=== PATIENT | female | born 1990 | race Caucasian/White ===

== ENCOUNTER 2017-10-23 10:26 | Inpatient (IN) | payer OTHER, BC, MEDICAID ==
[2017-10-23] VITALS (11 sets, daily range): BP systolic 100–131; BP diastolic 60–76; PULSE 66–97; RESP 12–20; TEMP 97.4–98.4; O2SAT 95–100
[~2017-10-23] VITALS: Ht 154.9 cm; Wt 73.0 kg
[~2017-10-23 10:26] MED LIST: MACR100C PO
--- NOTE | 2017-10-23 11:00 | HHI.HP ---
HPI Chief Complaint Repeat Date Seen: Oct 23, 2017 Travel History International Travel<30 Days: No Contact w/Intl Traveler<30Days: No History of Present Illness HPI Patient is a 27 year old at 39-0/7 weeks gestation who presents today for repeat . She denies any vaginal bleeding. She has been having a yellowish discharge for the past week that is not associated with vaginal itching or pain. She is feel irregular contractions but denies any gush or leaking of fluid. Positive movement. History Past Medical History Medical History: Denies Significant Hx Obstetric History Obstetric History x 2 2008, 2010 Past Surgical History Narrative Surgical Umbilical Hernia repair 2011 x 2 Family History Family History: Negative Social History Alcohol Use: No Tobacco Use: No Substance Abuse: No Allergies-Medications (Allergen,Severity, Reaction): Coded Allergies: No Known Allergies (Unverified , 01/07/15) Home Meds Active Scripts Nitrofurantoin Monohyd Macro (Macrobid) 100 Mg Cap, 100 MG PO BID for 7 Days, CAP Prov:Vic Arenas DO 01/08/15 Review of Systems Except as stated in HPI: all other systems reviewed are Neg General / Constitutional: No: Fever, Chills Eyes: No: Visual changes HENT: No: Headaches Cardiovascular: No: Chest Pain or Discomfort, Palpitations Respiratory: No: Cough, Short of Breath Gastrointestinal: No: Nausea, Vomiting, Abdominal Pain Genitourinary: No: Dysuria, Pelvic Pain, Discharge, Vaginal Bleeding Musculoskeletal: No: Edema Skin: No Lesions Neurologic: No: Headache Psychiatric: No: Substance Abuse Physical Exam Narrative GENERAL: Well-nourished, well-developed patient. SKIN: Warm and dry. HEAD: Normocephalic and atraumatic. EYES: No scleral icterus. No injection or drainage. ENT: No nasal drainage noted. Mucous membranes pink. Airway patent. NECK: Supple, trachea midline. No JVD. CARDIOVASCULAR: Regular rate and rhythm without murmurs, gallops, or rubs. RESPIRATORY: Breath sounds equal bilaterally. No accessory muscle use. ABDOMEN/GI: Abdomen soft, non-tender, bowel sounds present, no rebound, no guarding Gravid to 39 weeks size GENITOURINARY: External Genitalia: intact and normal in appearance Presentation: vertex Membranes: intact Uterine Contractions: occasional FHT's: Category: I Baseline: 140 Reactive: + Variability: moderate Decels: none EXTREMITIES: No cyanosis or edema. BACK: Nontender without obvious deformity. No CVA tenderness. NEUROLOGICAL: Awake and alert. Motor and sensory grossly within normal limits. Normal speech. Caprini VTE Risk Assessment Caprini VTE Risk Assessment: No/Low Risk (score <= 1) Caprini Risk Assessment Model Point Value = 1 Point Value = 2 Point Value = 3 Point Value = 5 Age 41-60 Minor surgery BMI > 25 kg/m2 Swollen legs Varicose veins or History of unexplained or recurrent spontaneous Oral contraceptives or hormone replacement Sepsis (< 1 month) Serious lung disease, including pneumonia (< 1 month) Abnormal pulmonary function Acute myocardial infarction Congestive heart failure (< 1 month) History of inflammatory bowel disease Medical patient at bed rest Age 61-74 Arthroscopic surgery Major open surgery (> 45 min) Laparoscopic surgery (> 45 min) Malignancy Confined to bed (> 72 hours) Immobilizing plaster cast Central venous access Age >= 75 History of VTE Family history of VTE Factor V Leiden Prothrombin [id number] Lupus anticoagulant Anticardiolipin antibodies Elevated serum homocysteine Heparin-induced thrombocytopenia Other congenital or acquired thrombophilia Stroke (< 1 month) Elective arthroplasty Hip, pelvis, or leg fracture Acute spinal cord injury (< 1 month) Prophylaxis Regimen Total Risk Factor Score Risk Level Prophylaxis Regimen 0-1 Low Early ambulation 2 Moderate Order ONE of the following: *Sequential Compression Device (SCD) *Heparin 5000 units SQ BID 3-4 Higher Order ONE of the following medications: *Heparin 5000 units SQ TID *Enoxaparin/Lovenox 40 mg SQ daily (WT < 150 kg, CrCl > 30 mL/min) *Enoxaparin/Lovenox 30 mg SQ daily (WT < 150 kg, CrCl > 10-29 mL/min) *Enoxaparin/Lovenox 30 mg SQ BID (WT < 150 kg, CrCl > 30 mL/min) AND/OR *Sequential Compression Device (SCD) 5 or more Highest Order ONE of the following medications: *Heparin 5000 units SQ TID (Preferred with Epidurals) *Enoxaparin/Lovenox 40 mg SQ daily (WT < 150 kg, CrCl > 30 mL/min) *Enoxaparin/Lovenox 30 mg SQ daily (WT < 150 kg, CrCl > 10-29 mL/min) *Enoxaparin/Lovenox 30 mg SQ BID (WT < 150 kg, CrCl > 30 mL/min) AND *Sequential Compression Device (SCD) Data Data Vital Signs Reviewed: Yes Orders Orders Admit To Inpatient (10/23/17 ) Code Status (10/23/17 10:50) Vital Signs (Adult) .ON ADMISSION (10/23/17 10:50) Activity Oob Ad María (10/23/17 10:50) Heart (10/23/17 10:50) Urinary Catheter Management YUMIKO.Q8H (10/23/17 10:50) ^ Preps (10/23/17 10:50) Scd / Tera / Foot Pump YUMIKO.QSHIFT (10/23/17 10:50) ^ Ultrasound For Locatio (10/23/17 10:50) Diet Npo (10/23/17 Lunch) Lactated Ringer's 1000 Ml Inj (Lr 1000 M (10/23/17 10:50) Lactated Ringer's 1000 Ml Inj (Lr 1000 M (10/23/17 11:20) Citric Acid-Sodium Citrate Liq (Bicitra (10/23/17 12:30) Type And Screen (10/23/17 10:50) Complete Blood Count With Diff (10/23/17 10:50) Urinalysis - C+S If Indicated (10/23/17 10:50) Drug Screen, Random Urine (10/23/17 10:50) Cefazolin Inj (Ancef Inj) (10/23/17 12:00) Inpatient Certification (10/23/17 ) Specimen To Be Collected PRN (10/23/17 10:50) Specimen To Be Collected PRN (10/23/17 10:50) Group B Strep: Negative Assessment/Plan Assessment and Plan 27 year old at 39-0/7 weeks gestation. 1. IUP- Category I tracing, reassuring. 2. Repeat . 3. GBS negative. dw Jessica Wren MD R3 Oct 23, 2017 11:00
[2017-10-23] MEDS ORDERED: LACTATED RINGER'S 1000 ML INJ 1,000 ML IV ONE ×2 (11:15→12:00)
[2017-10-23] MEDS ORDERED: LACTATED RINGER'S 1000 ML INJ 1,000 ML IV SCH (11:20)
[2017-10-23 11:27] LABS: AUTOMATED NEUTROPHIL # 7.1 TH/MM3 (1.8-7.7); BASOPHIL % 0.2 % (0.0-2.0); EOSINOPHIL % 0.5 % (0.0-4.0); HEMATOCRIT 37.5 % (35.0-46.0); HEMOGLOBIN 12.9 GM/DL (11.6-15.3); LYMPH % 20.2 % (9.0-44.0); MEAN CELL VOLUME 85.7 FL (80.0-100.0); MEAN CORPUSCULAR HEMOGLOBIN 29.5 PG (27.0-34.0); MEAN CORPUSCULAR HGB CONC 34.5 % (32.0-36.0); MEAN PLATELET VOLUME 9.3 FL (7.0-11.0); MONO % 6.7 % (0.0-8.0); MONOCYTE # 0.7 TH/MM3 (0-0.9); NEUT % 72.4 % (16.0-70.0); PLATELET COUNT 256 TH/MM3 (150-450); RED BLOOD COUNT 4.37 MIL/MM3 (4.00-5.30); RED CELL DISTRIBUTION WIDTH 17.8 % (11.6-17.2); WHITE BLOOD COUNT 9.8 TH/MM3 (4.0-11.0)
[2017-10-23 11:43] LABS: BACTERIA, URINE FEW /hpf; BILIRUBIN, URINE NEG (NEG); BLOOD, URINE NEG (NEG); GLUCOSE,URINE NEG (NEG); KETONE, URINE NEG (NEG); MUCUS URINE FEW /lpf (OCC); NITRITE,URINE NEG (NEG); SQUAMOUS EPITHELIAL CELL URINE 6 /hpf (0-5); URINE COLOR YELLOW (YELLW/STRAW); URINE LEUKOCYTE ESTERASE LARGE (NEG)
[2017-10-23] MEDS ORDERED: FERR325T18 PO (11:49)
[2017-10-23] MEDS ORDERED: PREN1PAK9 (11:49)
[2017-10-23] MEDS ORDERED: DEXAMETHASONE SOD PHOS 4 MG/ML VIAL IV ONE (12:00)
[2017-10-23] MEDS ORDERED: KETOROLAC TROMETHAMINE 30 MG/ML (IVP) VIAL IV PUSH ONE (12:00)
[2017-10-23] MEDS ORDERED: ePHEDrine/NS 25 MG/5 ML SYRINGE IV ONE (12:00)
[2017-10-23] MEDS ORDERED: ONDANSETRON HCL 4 MG/2 ML VIAL IV ONE (12:00)
[2017-10-23] MEDS ORDERED: OXYTOCIN 10 UNIT/ML AMP IV ONE (12:00)
[2017-10-23] MEDS ORDERED: CITRIC ACID-SODIUM CITRATE LIQ 30 ML UDC PO SCH (12:30)
[2017-10-23] MEDS ORDERED: MORPHINE SULFATE PF 5 MG/10 ML VIAL ONE (12:34)
[2017-10-23] MEDS ORDERED: ACETAMINOPHEN 1000 MG/100 ML 100 ML IV ONE (12:34)
[2017-10-23] MEDS ORDERED: SODIUM CHLORIDE 0.9% FLUSH 10 ML FLUSH IV FLUSH PRN (14:15)
[2017-10-23] MEDS ORDERED: ACETAMINOPHEN 325 MG TAB PO PRN (14:15)
[2017-10-23] MEDS ORDERED: SIMETHICONE 80 MG CHEWABLE TAB PO PRN (14:15)
[2017-10-23] MEDS ORDERED: ZOLPIDEM TARTRATE 5 MG TAB PO PRN (14:15)
[2017-10-23] MEDS ORDERED: ONDANSETRON HCL 4 MG/2 ML VIAL IV PUSH PRN ×2 (14:15→19:30)
[2017-10-23] MEDS ORDERED: OXYTOCIN 30 UNITS-500ML PREMIX 500 ML IV ONE (14:15)
--- NOTE | 2017-10-23 14:38 | PD.OP ---
Operative Report Date of Surgery: Oct 23, 2017 Preoperative Diagnosis: Postoperative Diagnosis: Procedure: Repeat Low Transverse Section and Left Oophorectomy Anesthesia: Spinal Surgeon: Yakov Walls MD Power Tool Repairer(s): Shwetha Sosa Resident Surgeon: Jessica Hunter MD Operation and Findings: PREOPERATIVE DIAGNOSES: 1. Intrauterine at 39 weeks gestation. 2. Previous section x 2. POSTOPERATIVE DIAGNOSES: 1. Intrauterine at 39 weeks gestation. 2. Previous section x 2. 3. Left ovarian dermoid cyst and endometriosis. PROCEDURE: Repeat low transverse section and left oophorectomy. SURGEON: Yakov Walls MD and Jessica Hunter MD ANESTHESIA: Spinal. FINDINGS: Normal infant female, weight 3380g, Apgars 9 and 9. Normal tubes, normal uterus, normal cul-de-sac. Left ovarian dermoid cyst measuring approximately 8cm x 7cm. Several areas of endometriosis on the left ovary and a 2mm area of endometriosis on the right ovary. COMPLICATIONS: None. COUNTS: Correct. ESTIMATED BLOOD LOSS: 600 mL. FLUIDS: Crystalloid. CONDITION: The patient tolerated the procedure well and went to the recovery room in satisfactory condition. PROCEDURE: Under an adequate level of anesthesia, she was prepped and draped for abdominal surgery. A Pfannenstiel incision was made and the old scar removed. The incision was carried down to the fascia. The fascia was taken off the rectus muscle by blunt and sharp dissection. The rectus muscles were spread bluntly and the peritoneum was entered under direct vision without difficulty. The incision was extended with care to avoid the urinary bladder. A bladder blade was placed and a bladder flap created in the usual fashion. The uterine incision was made in a transverse manner along the lower uterine segment which was well-developed. It was taken down in the midline until the intrauterine cavity was entered. A large amount of clear fluid was noted. The vertex was grasped and delivered without difficulty. A double nuchal cord was reduced. The remainder of the delivered without difficulty. Cord clamping was delayed for 45 seconds and then the cord was doubly clamped and cut and the handed to the resuscitation team present. The placenta was then delivered manually. The uterus was curettaged twice with a wet lap. The uterine incision was then repaired with 0 Vicryl in a running locking fashion, with the second layer imbricating the first. Hemostasis was excellent. On inspection of the ovaries, a cystic mass was identified on the left. The cyst was incised and drained a heterogenous collection of tissue including hair and sebaceous material. There was no ovarian tissue identified, however there were several areas of endometriosis identified on the cystic mass. The cyst was grasped and doubly clamped at the base. The base was tied with 0 Vicryl and the cyst excised. Hemostasis was excellent. The right ovary was then inspected and found to have a 2mm area of endometriosis which was cauterized with the Bovie. The cul-de-sac and gutters were copiously irrigated and cleaned of blood and debris. The uterus was delivered back into the abdomen. The rectus muscles were reapproximated with 0 Vicryl in interrupted fashion. The fascia was repaired from lateral to midline with 0 Vicryl and the subcu was repaired with 3-0 Vicryl. The skin was repaired with a 4-0 Monocryl in a subcuticular manner. The wound was sterilely dressed. She tolerated the procedure well and went to the recovery room in satisfactory condition. Jessica Hunter MD R3 Oct 23, 2017 14:38
[2017-10-23] MEDS ORDERED: OXYTOCIN 30 UNITS-500ML PREMIX 500 ML ONE (15:12)
[2017-10-23] MEDS ORDERED: OXYTOCIN 30 UNITS-500ML PREMIX 500 ML IV PRN (19:15)
[2017-10-23] MEDS ORDERED: KETOROLAC TROMETHAMINE 30 MG/ML (IVP) VIAL IV PUSH PRN (19:30)
[2017-10-23] MEDS ORDERED: HYDROmorphone HCL PF 0.5 MG/0.5 ML SYRINGE IV PUSH PRN (19:30)
[2017-10-23] MEDS: LACTATED RINGER'S 1000 ML INJ 1,000 ML IV SCH (20:30)
[2017-10-23] MEDS ORDERED: diphenhydrAMINE HCL 50 MG/ML VIAL IV PRN (21:00)
[2017-10-23] MEDS ORDERED: SODIUM CHLORIDE 0.9% FLUSH 10 ML FLUSH IV FLUSH SCH (21:00)
[2017-10-24] VITALS: BP 97/50; PULSE 100; RESP 18; RESP 9; TEMP 98.1; O2SAT 98
[2017-10-24] MEDS: LACTATED RINGER'S 1000 ML INJ 1,000 ML IV SCH (05:14)
[2017-10-24 06:39] LABS: AUTOMATED NEUTROPHIL # 8.8 TH/MM3 (1.8-7.7); BASOPHIL % 0.1 % (0.0-2.0); EOSINOPHIL % 0.1 % (0.0-4.0); HEMATOCRIT 27.1 % (35.0-46.0); HEMOGLOBIN 9.4 GM/DL (11.6-15.3); LYMPH % 17.8 % (9.0-44.0); LYMPHOCYTE # 2.1 TH/MM3 (1.0-4.8); MEAN CELL VOLUME 85.1 FL (80.0-100.0); MEAN CORPUSCULAR HEMOGLOBIN 29.6 PG (27.0-34.0); MEAN CORPUSCULAR HGB CONC 34.8 % (32.0-36.0); MEAN PLATELET VOLUME 8.8 FL (7.0-11.0); MONO % 8.9 % (0.0-8.0); MONOCYTE # 1.1 TH/MM3 (0-0.9); NEUT % 73.1 % (16.0-70.0); PLATELET COUNT 223 TH/MM3 (150-450); RED BLOOD COUNT 3.19 MIL/MM3 (4.00-5.30); RED CELL DISTRIBUTION WIDTH 17.8 % (11.6-17.2)
[2017-10-24] MEDS: IBUPROFEN 600 MG TAB PO PRN ×3 (07:56→20:55)
[2017-10-24] MEDS: DOCUSATE SODIUM 50 MG/SENNA 8.6 MG TAB PO PRN (07:56)
[2017-10-24] MEDS: oxyCODONE/ACETAMINOPHEN 5 MG/325 MG TAB PO PRN ×4 (07:56→22:02)
--- NOTE | 2017-10-24 09:23 | HHI.OB ---
Subjective Post Operative Day: 1 Remarks s/p repeat LTCD (h/o CD x 2) and left oophorectomy for large suspected dermoid cyst; also found to have endometriosis at time of surgery Pt of Dr. Walls's, I am covering for him this wknd Objective Vitals/I&O Vital Signs Date Time Temp Pulse Resp B/P (MAP) Pulse Ox O2 Delivery O2 Flow Rate FiO2 10/24/17 00:00 98.1 100 9 97/50 (66) 98 10/24/17 00:00 18 10/23/17 20:00 97.9 10/23/17 20:00 100 10/23/17 20:00 97 18 119/76 (90) 10/23/17 16:00 98.4 95 20 98 10/23/17 16:00 131/72 (91) 10/23/17 15:30 107/66 (80) 10/23/17 15:29 66 12 95 10/23/17 15:15 68 105/66 (79) 10/23/17 15:15 95 10/23/17 15:00 71 20 106/65 (79) 98 10/23/17 14:45 84 20 100/61 (74) 98 10/23/17 14:30 89 19 102/62 (75) 98 10/23/17 14:15 107/60 (76) 10/23/17 14:15 97.4 90 20 97 10/23/17 11:05 79 10/23/17 11:00 80 107/76 (86) Result Diagram: 10/24/17 0620 Objective Remarks GENERAL: Well-nourished, well-developed patient. CARDIOVASCULAR: Regular rate and rhythm without murmurs, gallops, or rubs. RESPIRATORY: Breath sounds equal bilaterally. No accessory muscle use. ABDOMEN/GI: Abdomen soft, non-tender, bowel sounds present. Incision: bandage in place; few small areas of drainage outlined yesterday with no further extension Fundus: Firm, non-tender at umbilicus. GENITOURINARY: Light to moderate bleeding. EXTREMITIES: No cyanosis or edema, non-tender, without signs of DVT. Medications and IVs Current Medications Medications (Trade) Dose Ordered Sig/Corazon Route Start Time Stop Time Status Last Admin Lactated Ringer's 1,000 ml @ 100 mls/hr Q10H IV 10/23/17 19:14 10/24/17 15:13 10/24/17 05:14 Oxytocin 500 ml @ 100 mls/hr UNSCH X1 PRN IV 10/23/17 19:15 10/24/17 19:14 (NS Flush) 2 ml BID IV FLUSH 10/23/17 21:00 10/23/17 21:00 (NS Flush) 2 ml UNSCH PRN IV FLUSH 10/23/17 14:15 (Mylicon Chew) 80 mg QID PRN PO 10/23/17 14:15 (Tylenol) 650 mg Q6H PRN PO 10/23/17 14:15 (Motrin) 600 mg Q6H PRN PO 10/23/17 14:15 10/24/17 07:56 (Percocet 5-325 Mg) 1 tab Q4H PRN PO 10/23/17 14:15 10/24/17 07:56 (Percocet 5-325 Mg) 2 tab Q4H PRN PO 10/23/17 14:15 (Bouchra-Colace) 2 tab Q12H PRN PO 10/23/17 14:15 10/24/17 07:56 (Ambien) 5 mg HS PRN PO 10/23/17 14:15 (M-M-R Ii Inj) 0.5 ml ONCE ONCE SQ 10/24/17 16:00 10/24/17 16:01 (Boostrix Inj) 0.5 ml ONCE ONCE IM 10/24/17 16:00 10/24/17 16:01 (Zofran Inj) 4 mg Q6H PRN IV PUSH 10/23/17 14:15 (Toradol Inj) 15 mg Q6H PRN IV PUSH 10/23/17 19:30 10/28/17 19:29 10/24/17 02:00 (Zofran Inj) 4 mg Q4H PRN IV PUSH 10/23/17 19:30 10/23/17 20:09 (Dilaudid Pf Inj) 0.5 mg Q2H PRN IV PUSH 10/23/17 19:30 (Benadryl Inj) 25 mg Q4H PRN IV 10/23/17 21:00 10/23/17 21:31 Assessment/Plan Assessment and Plan POD#1 s/p RLTCD and L oophorectomy for large suspected dermoid cyst - supportive care, reviewed surgery findings (from review of operative notes) and implications, AQA - pt to ambulate, shower today, advance diet - remove bandage in shower - anticipate d/c on POD#3 due to additional procedures performed at time of CD - will recheck H/H tmrw to ensure stability, asymptomatic currently Discharge Planning POD#3 Lina Alvarez MD Oct 24, 2017 09:23
[2017-10-24] MEDS ORDERED: DIPHTH/TETANUS/ACEL PERTUSSIS (BOOSTER) 0.5 ML VIAL/PFS IM ONE (16:00)
[2017-10-24] MEDS ORDERED: MEASLES, MUMPS, RUBELLA VACCINE 0.5 ML VIAL SQ ONE (16:00)
[2017-10-25 05:19] LABS: AUTOMATED NEUTROPHIL # 6.1 TH/MM3 (1.8-7.7); BASOPHIL % 0.4 % (0.0-2.0); EOSINOPHIL # 0.1 TH/MM3 (0-0.4); EOSINOPHIL % 0.9 % (0.0-4.0); HEMATOCRIT 28.9 % (35.0-46.0); LYMPH % 27.2 % (9.0-44.0); LYMPHOCYTE # 2.6 TH/MM3 (1.0-4.8); MEAN CELL VOLUME 87.3 FL (80.0-100.0); MEAN CORPUSCULAR HEMOGLOBIN 30.1 PG (27.0-34.0); MEAN CORPUSCULAR HGB CONC 34.5 % (32.0-36.0); MEAN PLATELET VOLUME 9.1 FL (7.0-11.0); MONO % 6.4 % (0.0-8.0); MONOCYTE # 0.6 TH/MM3 (0-0.9); NEUT % 65.1 % (16.0-70.0); PLATELET COUNT 230 TH/MM3 (150-450); RED BLOOD COUNT 3.31 MIL/MM3 (4.00-5.30); WHITE BLOOD COUNT 9.4 TH/MM3 (4.0-11.0)
[2017-10-25] MEDS: oxyCODONE/ACETAMINOPHEN 5 MG/325 MG TAB PO PRN ×2 (08:00→14:05)
[2017-10-25] MEDS: DOCUSATE SODIUM 50 MG/SENNA 8.6 MG TAB PO PRN (08:01)
[2017-10-25] MEDS: IBUPROFEN 600 MG TAB PO PRN ×2 (08:02→14:06)
--- NOTE | 2017-10-25 08:37 | HHI.OB ---
Subjective Post Operative Day: 2 Remarks doing ok, pain did start to increase yesterday after initial 24h time from from spinal over, was able to shower, pain controlled with oral meds, ambulating, voiding Objective Result Diagram: 10/25/17 6835 Objective Remarks GENERAL: Well-nourished, well-developed patient. CARDIOVASCULAR: Regular rate and rhythm without murmurs, gallops, or rubs. RESPIRATORY: Breath sounds equal bilaterally. No accessory muscle use. ABDOMEN/GI: Abdomen soft, non-tender, bowel sounds present. Incision: intact, slight bloody drainage from L side, minimal, no active drainage Fundus: Firm, non-tender at umbilicus. GENITOURINARY: Light to moderate bleeding. EXTREMITIES: No cyanosis or edema, non-tender, without signs of DVT. Medications and IVs Current Medications Medications (Trade) Dose Ordered Sig/Corazon Route Start Time Stop Time Status Last Admin (NS Flush) 2 ml BID IV FLUSH 10/23/17 21:00 10/23/17 21:00 (NS Flush) 2 ml UNSCH PRN IV FLUSH 10/23/17 14:15 (Mylicon Chew) 80 mg QID PRN PO 10/23/17 14:15 10/24/17 11:56 (Tylenol) 650 mg Q6H PRN PO 10/23/17 14:15 (Motrin) 600 mg Q6H PRN PO 10/23/17 14:15 10/25/17 08:02 (Percocet 5-325 Mg) 1 tab Q4H PRN PO 10/23/17 14:15 10/24/17 17:17 (Percocet 5-325 Mg) 2 tab Q4H PRN PO 10/23/17 14:15 10/25/17 08:00 (Bouchra-Colace) 2 tab Q12H PRN PO 10/23/17 14:15 10/25/17 08:01 (Ambien) 5 mg HS PRN PO 10/23/17 14:15 (Zofran Inj) 4 mg Q6H PRN IV PUSH 10/23/17 14:15 (Toradol Inj) 15 mg Q6H PRN IV PUSH 10/23/17 19:30 10/28/17 19:29 10/24/17 02:00 (Zofran Inj) 4 mg Q4H PRN IV PUSH 10/23/17 19:30 10/23/17 20:09 (Dilaudid Pf Inj) 0.5 mg Q2H PRN IV PUSH 10/23/17 19:30 (Benadryl Inj) 25 mg Q4H PRN IV 10/23/17 21:00 10/23/17 21:31 Assessment/Plan Assessment and Plan POD#2 s/p RLTCD and L oophorectomy for large suspected dermoid cyst - supportive care, encouraged to shower again today to ensure oozing stopped from L side of incision - H/H stable, asymptomatic - likely d/c to home tmrw Discharge Planning routine Lina Alvarez MD Oct 25, 2017 08:37
[2017-10-25] MEDS ORDERED: IBUP-232 PO (08:38)
[2017-10-25] MEDS ORDERED: OXYC1TAB63 PO (08:38)
[2017-10-25] MEDS ORDERED: PERI PO (08:38)
--- NOTE | 2017-10-25 08:40 | HHI.DCPOC ---
Discharge Care Plan Diagnosis: (1) S/P repeat low transverse Your Health Problems Are: delivery Report Symptoms to Your Doctor -Temperature above 100.5 degrees -Redness, of incision or excessive or foul smelling drainage -Unusual pain or calf pain -Increased vaginal bleeding -Painful or difficulty urinating -Feelings of extreme sadness or anxiety after 2 weeks Goals to Promote Your Health * To prevent worsening of your condition and complications * To maintain your health at the optimal level Directions to Meet Your Goals Take your medications as prescribed Follow your dietary instruction Follow activity as directed Ensure plenty of rest for recovery Drink fluids for hydration Keep your appointments as scheduled Take your immunizations and boosters as scheduled If your symptoms worsen call your PCP, if no PCP go to Urgent Care Center or Emergency Room Smoking is Dangerous to Your Health. Avoid second hand smoke Call the 24-hour crisis hotline for domestic abuse at Lina Alvarez MD Oct 25, 2017 08:40
== END 2017-10-25 14:54 | disposition home or self-care (01) | DRG 766 ==
LOC: H2EB 10:26 → H1EA 15:58
PROVIDERS: ADMIT Obstetrics & Gynecology; ATTEND Obstetrics & Gynecology
PROC: 10D00Z1 Extraction of Products of Conception, Low, Open Approach (ICD-10-PCS; principal; 2017-10-23)
PROC: 0UT10ZZ Resection of Left Ovary, Open Approach (ICD-10-PCS; 2017-10-23)
PROC: 3E0S3NZ Introduction of Analgesics, Hypnotics, Sedatives into Epidural Space, Percutaneous Approach (ICD-10-PCS; 2017-10-23)
DX: O34.219 Maternal care for unspecified type scar from previous cesarean delivery (principal); N80.1 Endometriosis of ovary; Z3A.39 39 weeks gestation of pregnancy; Z37.0 Single live birth; O34.83 Maternal care for other abnormalities of pelvic organs, third trimester
CPT/HCPCS: 59025; 80307; 81001; 85025; 86850; 86900; 86901; 87086; 88305; 88307; 90707; 90715; J0131; J0690; J1100; J1200; J1885; J2274; J2405; J2590; J3010; J7120